=== PATIENT | female | born 1945 | race African-American/Black ===

== ENCOUNTER 2016-08-06 20:58 | Emergency (ER) | payer MEDICARE, MEDICAID ==
[~2016-08-06 20:58] MED LIST: BAYER81 MG PO; CITRACAL + D C1 EACH PO; COMBIVENT INH; GUAIFENESIN600 MG PO; HYDROCHLOROTH12.5 M2 PO; LEVAQUIN750 MG PO; LISINOPRIL20 MG PO; LOPRESSOR100 MG PO; LOPRESSOR50 MG PO; METHYLPREDNISOLO4 MG PO; NAPROXEN PO; NAPROXYN500 MG/TA1 PO; NORVASC5 M1 PO; PREDNISONE20 MG PO; VENTOLIN HFA18 GM INH; ZITHROMAX250 MG PO; ZOCOR20 MG PO; [UNRECOGNIZED DRUG - CODE] PO; [UNRECOGNIZED DRUG - OTHER] PO
[2016-08-06] MEDS ORDERED: SENNA8.6 M2 PO (22:25)
== END 2016-08-06 23:17 ==
LOC: EDMED 20:58
DX: I10 Essential (primary) hypertension (principal); E78.5 Hyperlipidemia, unspecified; F17.210 Nicotine dependence, cigarettes, uncomplicated; Z98.890 Other specified postprocedural states; Z79.899 Other long term (current) drug therapy